=== PATIENT | male | born 1980 | race Caucasian/White ===

== ENCOUNTER 2025-06-23 15:22 | Emergency (ER) | payer OTHER, SELFPAY ==
[2025-06-23 15:30] VITALS: BP 165/105; PULSE 89; RESP 18; TEMP 36.7; O2SAT 98; BMI 27.3
--- NOTE | 2025-06-23 15:43 | CRLHL7_ITS ---
For Patients: As a result of the Cures Act, medical imaging exams and procedure reports are released immediately into your electronic medical record. You may view this report before your referring provider. If you have questions, please contact your health care provider. INDICATION: Cut tip of finger in log splitter TECHNIQUE: Left hand 4th digit three views. COMPARISON: None. FINDINGS: Amputation of the distal 4th phalanx with minimal partial osseous resection of the tuft of the distal 4th phalanx. No other osseous abnormality. No radiopaque foreign body evident. IMPRESSION: Amputation of the distal 4th phalanx with minimal osseous involvement. No radiopaque foreign body. Dictated by Joaquim Easton MD @ 06/23/2025 3:59:58 PM (Electronically Signed)
[2025-06-23] MEDS: ACETAMINOPHEN 500 MG TABLET 1000 MG PO (16:05)
[2025-06-23] MEDS: LIDOCAINE 1 % PF 30 ML INJECTION (16:07)
[2025-06-23] MEDS: TETANUS/DIPHTH/PERTUSSIS 0.5 ML SYRINGE IM (17:48)
--- NOTE | 2025-06-23 17:53 | CRLHL7_ITS ---
For Patients: As a result of the Cures Act, medical imaging exams and procedure reports are released immediately into your electronic medical record. You may view this report before your referring provider. If you have questions, please contact your health care provider. Indication: Follow-up Technique: Left hand 3 views. Comparison: X-ray left hand June 23, 2025 Findings/Impression: Re-demonstration of 4th distal phalangeal amputation. Comminuted and displaced fracture of 4th distal phalanx, more conspicuous than previous exam. Mild adjacent soft tissue swelling with overlying dressing.. Dictated by Rayray Martini MD @ 06/23/2025 7:12:55 PM (Electronically Signed)
[2025-06-23 18:18] VITALS: BP 149/89; PULSE 85; RESP 18; TEMP 36.7; O2SAT 98
[2025-06-23 18:19] VITALS: BP 149/89; PULSE 85; RESP 18; TEMP 36.7
--- NOTE | 2025-06-23 18:43 | ED_ITS ---
HPI - Wound/Laceration General Date Seen: 06/23/25 Chief Complaint: Laceration/Wound Stated Complaint: tip of finger cut off Time Seen by Provider: 06/23/25 15:55 Source: patient, RN notes reviewed and old records reviewed Mode of arrival: ambulatory Limitations: no limitations History of Present Illness HPI narrative: Patient is a delightful 45-year-old gentleman who presents here for left 4th finger injury, when he took the tip of his finger off with the log splitter. This occurred approximately 45 minutes to an hour ago he is brought the piece of his finger in. He notes that he is on no medications no known allergies does not know when his last tetanus shot was. Does not see there is any pain at all nothing here. This did happen at work. Place: work Patient tetanus UTD: No Context: accidental Associated symptoms: none Treatments prior to arrival: bandage Related Data Home Medications ?Medication ?Instructions ?Recorded ?Confirmed No Known Home Medications 06/23/2506/02 Allergies Allergy/AdvReac Type Severity Reaction Status Date / Time No Known Drug Allergies Allergy Verified 06/23/25 15:33 Review of Systems Status of ROS: Reports: 6 or more systems reviewed and unremarkable except as noted in History and below PFSH PFS Social History Smoking Status: Never smoker Second hand tobacco smoke exposure: No How often do you have a drink containing alcohol: never AUDIT-C Alcohol total score: 0 Non-prescribed substance use: denies use Exam Narrative: Exam Narrative: On examination the only injury to his left 4th finger, he has has a guillotine type laceration to the nail bed straight through his finger. There is some oozing blood, he has good capillary refill, it is of fairly clean cut. The piece that he is brought in is totally nonviable, he also has what appears to be exposed bone. X-rays done, which shows the guillotine type laceration. Also rate through the bone. 1% lidocaine without epinephrine x6 mL i s used in a modified finger block this is also around the tip. This resulted in good anesthesia, we were able the ir rigate this out with 1 L normal saline, and I was able to then sterilely prepped and draped. Given the fact that there is exposed bone, I ronguered the tip back. So I was able to cover it, was then able to tack it to the nail. Using a cautery. Two deep Vicryl sutures were used to approximate the subcu dermal tissue. I then was able to with 6 sutures, using a v-shaped extension of the wound. Bring the wound together, an distal tip finger with covered bone. Small amount of foreign body was removed. I did have to trim back the fat. Post x-ray was done, this shows multiple bone laterally. But I think this will get resort. I did have Orthopedics view this, Dr. Luevano. He thought to be reasonable for the patient to be seen next week, put on antibiotics, and if he has further issues they can fix this. I explained to the patient that it was piece of finger E brought in was not viable, were not able to reattached this, he was comfortable with this but he should get a good result with this. Barring infection. He was pretreated with antibiotics. Tetanus was updated. Post the wound looked excellent, less than 10 mL of blood loss. Tolerated well Const: Vital Signs, click to edit/add: Vital Signs - 24 hr 06/23/25 15:30 06/23/25 18:18 06/23/25 18:19 Temperature 98.0 F 98.0 F 98.0 F Pulse Rate [Pulse Oximeter] 89 85 85 Respiratory Rate 18 18 18 Blood Pressure [Ri ght Upper Arm] 165/105 H 149/89 H 149/89 H Pulse Oximetry 98 98 Oxygen Delivery Me thod Room Air Room Air Course Vital Signs Vital signs: Initial Vital Signs Temperature 98.0 F 06/23/25 15:30 Temperature Source Temporal Artery Scan 06/23/25 15:30 Pulse Rate 89 06/23/25 15:30 Pulse Rhythm Regular 06/23/25 15:30 Respiratory Rate 18 06/23/25 15:30 Blood Pressure 165/105 H 06/23/25 15:30 Blood Pressure Mean 125 H 06/23/25 15:30 Blood Pressure Position Sitting 06/23/25 15:30 Pulse Oximetry 98 06/23/25 15:30 Oxygen Delivery Method Room Air 06/23/25 15:30 Vital Signs Temperature 98.0 F 06/23/25 15:30 Pulse Rate 89 06/23/25 15:30 Respiratory Rate 18 06/23/25 15:30 Blood Pressure 165/105 H 06/23/25 15:30 Pulse Oximetry 98 06/23/25 15:30 Oxygen Delivery Method Room Air 06/23/25 15:30 Temperature 98.0 F 06/23/25 18:19 Pulse Rate 85 06/23/25 18:19 Respiratory Rate 18 06/23/25 18:19 Blood Pressure 149/89 H 06/23/25 18:19 Pulse Oximetry 98 06/23/25 18:18 Oxygen Delivery Method Room Air 06/23/25 18:18 Medications Administered Medications: Discontinued Medications Generic Name Dose Route Start Last Admin Trade Name Freq PRN Reason Stop Dose Admin Acetaminophen 1,000 mg 06/23/25 16:00 06/23/25 16:05 Acetaminophen 500 Mg Tablet PO 06/23/25 16:01 1,000 mg ONCE ONE Administration Cephalexin HCl 1,000 mg 06/23/25 16:00 06/23/25 16:05 Cephalexin 500 Mg Capsule PO 06/23/25 16:01 1,000 mg ONCE ONE Administration Diphtheria/Tetanus/Acell Pertussis 0.5 ml 06/23/25 17:38 06/23/25 17:48 Tetanus/Diphth/Pertussis 0.5 Ml Syringe IM 06/23/25 17:39 0.5 ml .ONCE ONE Administration Lidocaine HCl 30 ml 06/23/25 16:00 06/23/25 16:07 Lidocaine 1 % Pf 30 Ml INJECTION 30 ml ONCE PRN Administration Discharge Plan Discharge Clinical Impression: Traumatic amputation of finger through distal interphalangeal (DIP) joint, Laceration Patient Disposition: Home, Self-Care Condition: Stable Instructions: Finger Amputation (ED) Additional Instructions: Home rest the dressing on until tomorrow morning, recommend you follow-up with orthopedics within 48 hours, I did discuss this with them. Take antibiotics as directed and pain medications only if needed. You can use Tylenol ibuprofen with what I gave you. Increasing pain swelling fevers chills or signs of infection he should come back. Light activity, using that finger. Do recommend you cover that up. I did give you a brace that she can wear after couple days. He still have to use the Band-Aid also. Sutures should come out in 7-10 days, they will give some direction when he see Orthopedics. Activity Level: Light activity Prescriptions: No Action No Known Home Medications Follow Up/Referrals: Provider,Not a Local [Primary Care Provider, Family Practice] Stand Alone Forms: [employer] Info Instructions
== END 2025-06-23 18:19 | disposition home or self-care (01) ==
PROVIDERS: Emergency Provider Family Medicine
DX: S68.615A Complete traumatic transphalangeal amputation of left ring finger, initial encounter (principal); W31.2XXA Contact with powered woodworking and forming machines, initial encounter; Z23 Encounter for immunization
CPT/HCPCS: 12001; 73140; 90471; 90715; 99284; A9270; J2003

== ENCOUNTER 2025-06-24 09:11 | Emergency (ER) | payer OTHER, SELFPAY ==
[2025-06-24 09:18] VITALS: BP 154/100; PULSE 81; RESP 18; TEMP 36.7; O2SAT 97; BMI 27.7
--- NOTE | 2025-06-24 09:31 | ED.GENADULT ---
HPI - General Adult General Chief complaint: Extremity Pain/Injury, Upper Stated complaint: R finger injury yesterday Time Seen by Provider: 06/24/25 09:18 History of Present Illness HPI narrative: Patient is a 45-year-old gentleman who unfortunately had a amputation of 4th digit his left hand distally yesterday splitting wood. The wound was x-rayed and there is a small fragment of the digit missing. There is also some minor bone in the soft tissue the splint off. The wound was aggressively irrigated and sutured yesterday and today he is concerned as he is seen some white material in the granulation tissue. No signs of fever chills. Patient is up-to-date on his tetanus shot is on antibiotics in the form of Augmentin. Related Data Home Medications ?Medication ?Instructions ?Recorded ?Confirmed No Known Home Medications 06/23/25 06/23/25 Allergies Allergy/AdvReac Type Severity Reaction Status Date / Time No Known Drug Allergies Allergy Verified 06/23/25 15:33 Review of Systems Status of ROS: Reports: 10 or more systems reviewed and unremarkable except as noted in History and below PFSH PFS Social History Smoking Status: Never smoker Second hand tobacco smoke exposure: No How often do you have a drink containing alcohol: never AUDIT-C Alcohol total score: 0 Non-prescribed substance use: denies use Exam Narrative: Exam Narrative: EXAM GENERAL: Patient appears comfortable and well. EYES: No scleral icterus. LYMPH: No supraclavicular or cervical lymphadenopathy. SKIN: Visible skin seen during exam normal or with benign process only. EXT: Examination of the 4th digit on the left hand shows distal amputation with good wound closure. There is some fashion verses bone fragments that are imbedded in the soft tissue. Think these will slough off with time. I do not believe we need to interrupt or disturb the wound healing process. We did re-dress his wound offered reassurance. PSYCH: Good eye contact, speech is not pressured. Const: Vital Signs, click to edit/add: Vital Signs - 24 hr 06/24/25 09:18 Temperature 98.1 F Pulse Rate [Pulse Oximeter] 81 Respiratory Rate 18 Blood Pressure [Ri ght Upper Arm] 154/100 H Pulse Oximetry 97 Oxygen Delivery Me thod Room Air Course Vital Signs Vital signs: Initial Vital Signs Temperature 98.1 F 06/24/25 09:18 Temperature Source Temporal Artery Scan 06/24/25 09:18 Pulse Rate 81 06/24/25 09:18 Respiratory Rate 18 06/24/25 09:18 Blood Pressure 154/100 H 06/24/25 09:18 Blood Pressure Mean 118 H 06/24/25 09:18 Blood Pressure Position Sitting 06/24/25 09:18 Pulse Oximetry 97 06/24/25 09:18 Oxygen Delivery Method Room Air 06/24/25 09:18 Vital Signs Temperature 98.1 F 06/24/25 09:18 Pulse Rate 81 06/24/25 09:18 Respiratory Rate 18 06/24/25 09:18 Blood Pressure 154/100 H 06/24/25 09:18 Pulse Oximetry 97 06/24/25 09:18 Oxygen Delivery Method Room Air 06/24/25 09:18 Temperature 98.1 F 06/24/25 09:18 Pulse Rate 81 06/24/25 09:18 Respiratory Rate 18 06/24/25 09:18 Blood Pressure 154/100 H 06/24/25 09:18 Pulse Oximetry 97 06/24/25 09:18 Oxygen Delivery Method Room Air 06/24/25 09:18 Medical Decision Making MDM Narrative Medical decision making narrative: EXT: Examination of the 4th digit on the left hand shows distal amputation with good wound closure. There is some fashion verses bone fragments that are imbedded in the soft tissue. Think these will slough off with time. I do not believe we need to interrupt or disturb the wound healing process. We did re-dress his wound offered reassurance. He will continue his antibiotics and follow-up with ortho as scheduled next week. Discharge Plan Discharge Clinical Impression: Amputated finger Patient Disposition: Home, Self-Care Condition: Stable Instructions: Finger Amputation (ED) Additional Instructions: Continue current care Follow-up as scheduled. Activity Level: No Restrictions Discharge Diet: Regular Prescriptions: No Action No Known Home Medications Follow Up/Referrals: Provider,Not a Local [Primary Care Provider, Family Practice] Stand Alone Forms: [employer] Info Instructions
== END 2025-06-24 09:55 | disposition home or self-care (01) ==
PROVIDERS: Emergency Provider Internal Medicine
DX: S68.625D Partial traumatic transphalangeal amputation of left ring finger, subsequent encounter (principal); W31.89XD Contact with other specified machinery, subsequent encounter; Y93.L1 Activity, splitting wood
CPT/HCPCS: 99283